=== PATIENT | female | born 1980 | race Caucasian/White ===

== ENCOUNTER 2022-06-23 17:20 | Emergency (ER) | payer BC ==
[~2022-06-23] VITALS: Ht 177.8 cm; Wt 213.2 kg
--- NOTE | 2022-06-23 17:35 | NUR ---
c/o R leg pain, swollen x 2 days, per patient she walked 4-5 hours while on vacation, sent by [facility]D for Ultrasound r/o DVT 08/16 ps
--- NOTE | 2022-06-23 18:02 | NUR ---
TECT AT BEDSIDE FOR ULTRASOUND
--- NOTE | 2022-06-23 18:20 | NUR ---
DVT NEGATIVE PER MD LINA MADE AWARE
[2022-06-23 19:07] VITALS: BP 145/89
--- NOTE | 2022-06-23 19:07 | NUR ---
Patient discharged to home in stable condition. Written and verbal after care instructions given. Patient verbalizes understanding of instruction.
== END 2022-06-23 19:07 | disposition home or self-care (01) ==
LOC: ER 17:26
DX: S76.811A Strain of other specified muscles, fascia and tendons at thigh level, right thigh, initial encounter (principal); I10 Essential (primary) hypertension; J45.909 Unspecified asthma, uncomplicated; X58.XXXA Exposure to other specified factors, initial encounter; Y93.89 Activity, other specified; Y92.89 Other specified places as the place of occurrence of the external cause; Y99.8 Other external cause status
CPT/HCPCS: 93971-TC